=== PATIENT | female | born 1975 | race Caucasian/White ===

== ENCOUNTER → 2020-10-07 17:47 | Outpatient (CLI) | payer OTHER, SELFPAY ==
--- NOTE | ~2020-10-07 | MM_ITS ---
EXAMINATION: MM screening anahi BI w jg HISTORY: Screening TECHNIQUE: Craniocaudal and mediolateral oblique 3-D tomosynthesis images were obtained and synthetic 2-D images were generated. CAD analysis was submitted and interpreted. COMPARISON: Comparison to multiple prior studies sequentially, with oldest reviewed study dated 08/2017. BREAST PARENCHYMAL COMPOSITION: The breasts are heterogeneously dense, which may obscure small masses . FINDINGS: There is no evidence of suspicious mass, calcification, or architectural distortion to sugg est malignancy in either breast. There has been no suspicious interval change. IMPRESSION: 1. No mammographic evidence of malignancy. 2. Recommend routine screening mammography in one year. BI-RADS Category 1: Negative Reviewed, dictated and finalized at location A. 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
== END ==
PROVIDERS: Visit Provider Physician Assistant
DX: Z12.31 Encounter for screening mammogram for malignant neoplasm of breast (principal)
CPT/HCPCS: 77063; 77067

== ENCOUNTER → 2022-01-19 16:39 | Outpatient (CLI) | payer OTHER, SELFPAY ==
--- NOTE | ~2022-01-19 | MM_ITS ---
EXAMINATION: MM screening anahi BI w jg HISTORY: Screening mammogram TECHNIQUE: Craniocaudal and mediolateral oblique 3-D tomosynthesis images were obtained and synthetic 2-D images were generated. CAD analysis was submitted and interpreted. COMPARISON: No prior mammogram is available for comparison at this institution. BREAST PARENCHYMAL COMPOSITION: The breasts are heterogeneously dense, which may obscure small masses . FINDINGS: There is no evidence of suspicious mass, calcification, or architectural distortion to sugg est malignancy in either breast. There has been no suspicious interval change. IMPRESSION: 1. No mammographic evidence of malignancy. 2. Recommend routine screening mammography in one year. BI-RADS Category 1: Negative Reviewed, dictated and finalized at location A.
== END ==
PROVIDERS: PCP Family Medicine; Visit Provider Obstetrics & Gynecology Gynecology
DX: Z12.31 Encounter for screening mammogram for malignant neoplasm of breast (principal)
CPT/HCPCS: 77063; 77067

== ENCOUNTER 2023-03-13 09:08 | Emergency (ER) | payer OTHER, SELFPAY ==
--- NOTE | 2023-03-13 09:10 | ED.ANIMALBIT ---
HPI - Animal Bite General Chief Complaint: Animal Bite Stated Complaint: Animal Bite Rt Arm Time Seen by Provider: 03/13/23 09:09 Source: patient Mode of arrival: ambulatory Limitations: no limitations History of Present Illness HPI narrative: Yuridia is a 47-year-old female patient presenting to the clinic today with complaints of a cat bite to her right arm. She reports her cat bite her right forearm 2 nights ago. States the arm has become more swollen, painful, and she now has redness streaking up her arm with pain in her axilla. Reports chills/bodyaches but has not checked her temperature. Tetanus is not up to date. Related Data Home Medications Medication Instructions Recorded Confirmed estradiol 1 mg tablet 1 mg DIRECTED 03/13/23 03/13/23 Allergies Allergy/AdvReac Type Severity Reaction Status Date / Time No Known Allergies Allergy Verified 11/28/22 15:50 Review of Systems Review of Systems: Pertinent positives per HPI. Patient denies any headache, visual changes, dizziness, cough, runny nose, sore throat, shortness of breath, chest pain, palpitations, nausea, vomiting, diarrhea, constipation, abdominal pain, or any urinary issues. [facility] Past Medical History Medical History History of endometriosis HTN (hypertension) Major depressive disorder, recurrent, moderate Tobacco dependence due to cigarettes Surgical History Surgical History History of adenoidectomy History of hysterectomy Family History Family History Father Hypertension Acute myocardial infarction Sibling Hypertension Mother Patient's mother is in good health Hypertension Grandparent Alzheimer disease Social History Social History Social History: Single Smoking packs per day: 1 Smoking cigarettes per day: 20.0 Years smoked: 30 Smoking pack-years: 30.00 Smoking status: Current every day smoker Tobacco type: cigarettes Second hand tobacco smoke exposure: Yes Alcohol intake: current Drinks per week: 3 Substance use: never Substance use type: does not use Living arrangements: alone Occupation/Education: occupation Gender identity (if verbalized by the patient): Female Sexual Orientation (if Verbalized by the Patient): Straight or Heterosexual Comments At the time of my signature, I reviewed and agree with the nursing past medical, surgical, social, and family history. There is no relevant family history pertinent to the patient complaint. Exam Narrative: General: Well-developed, well nourished, in no apparent distress Head: Normocephalic, atraumatic. Cardio: Regular rate and rhythm, s1 and s2 normal, no murmur appreciated. Resp: Clear to auscultation bilaterally, no rhonchi, rales, wheezing or rubs. Integumentary: [place], warm, and dry, scabbed over puncture wound to the right dorsal forearm with swelling, erythema, and redness/streaking to the volar aspect of her arm going up into her right axilla. No palpable abscess. Course Course Emergency Course: Portions of this record may have been created with voice recognition software. Level of Care: Express Care Visit Vital Signs Vital signs: Vital signs reviewed Transfer Transfered to: [place] Transportation: Other (private car) Transfer rationale: Cat bite to right forearm, cellulitis, infected puncture wound Accepting physician: Dr. Valenzuela Transfer comments: transfer via private car MDM - Animal Bite MDM Narrative Medical decision making narrative: At the time of visit patient is resting comfortably on exam table. I suspect patient has an infected cat bite with cellulitis to the right forearm with streaking to the volar aspect of the arm going into the right armpit. Recomme
[2023-03-13 09:18] VITALS: BP 140/76; PULSE 86; RESP 18; TEMP 36.7; O2SAT 100
== END 2023-03-13 09:36 | disposition short-term general hospital (02) ==
PROVIDERS: Emergency Provider Nurse Practitioner Family; PCP Family Medicine
DX: S51.831A Puncture wound without foreign body of right forearm, initial encounter (principal); L03.113 Cellulitis of right upper limb; W55.01XA Bitten by cat, initial encounter; F17.210 Nicotine dependence, cigarettes, uncomplicated; N80.9 Endometriosis, unspecified; I10 Essential (primary) hypertension
CPT/HCPCS: 99212; G0463

== ENCOUNTER 2023-03-13 09:49 | Observation (INO) | payer OTHER, SELFPAY ==
[2023-03-13] VITALS (17 sets, daily range): BP systolic 139–172; BP diastolic 64–85; PULSE 68–80; RESP 16–18; TEMP 36.1–36.8; O2SAT 95–100; BMI 24.8; BMI 24.9
[2023-03-13 10:58] LABS: Basophils Absolute Auto 0.1 K/mm3 (0.0-0.1); Basophils Percent Auto 0.3 % (0.2-1.2); Eosinophils Percent Auto 0.1 % (0-4.4); Hematocrit 48.7 % (37.0-47.0); Hemoglobin 16.7 g/dL (12.0-15.0); Immature Granulocyte Percent A 0.5 % (0-0.5); Lymphocytes Absolute Auto 1.77 K/mm3 (0.9-3.2); Lymphocytes Percent Auto 9.3 % (18.3-44.2); Mean Corpuscular HGB Conc 34.3 g/dl (32-36); Mean Corpuscular Hemoglobin 31.9 pg (26-34); Mean Corpuscular Volume 92.9 fl (80-100); Mean Platelet Volume 10.7 fl (7.4-10.4); Monocytes Absolute Auto 1.2 K/mm3 (0.1-0.6); Monocytes Percent Auto 6.4 % (2.6-8.5); Neutrophils Absolute Auto 15.9 K/mm3 (1.3-6.7); Neutrophils Percent Auto 83.4 % (45.5-73.1); Platelet Count Result 211 k/mm3 (150-375); Red Blood Count 5.24 M/mm3 (4.2-5.4); Red Cell Distribution Width 13.5 % (11.5-14.5)
--- NOTE | 2023-03-13 11:05 | PC.NURSE ---
Report given to LALIT Leon
[2023-03-13 11:14] LABS: Alanine Aminotransferase 37 U/L (6-35); Albumin Level 4.8 g/dL (3.5-5.1); Alkaline Phosphatase 89 U/L (38-126); Anion Gap 10 mmol/L (8-16); Aspartate Amino Transferase 32 U/L (14-36); Blood Urea Nitrogen 9 mg/dL (7-17); Calcium 9.4 mg/dL (8.4-10.2); Carbon Dioxide 23 mmol/L (22-30); Chloride 102 mmol/L (98-107); Estimated CRCL calculation 87 ml/min; Estimated Glomerular Filt Rate > 60; Glucose 111 mg/dL (65-110); Potassium 3.7 mmol/L (3.4-5.0); Sodium 135 mmol/L (137-145)
[2023-03-13] MEDS: AMPICILLIN SULB 3 GM/NS 100 ML 3 GM/100 ML VIAL IVPB ×3 (11:23→23:15)
[2023-03-13 11:26] LABS: CRP 19.2 mg/dL (<1.0)
--- NOTE | 2023-03-13 11:48 | ED.WOUNDLAC ---
HPI - Wound/Laceration General Chief Complaint: Wound/Laceration Stated Complaint: redness, swelling right arm Time Seen by Provider: 03/13/23 10:51 Source: patient and RN notes reviewed Mode of arrival: ambulatory Limitations: no limitations History of Present Illness HPI narrative: THis is a 47 year old female who presents for evaluation of right arm redness, s/p cat bite. PAtient reports she was bitten by cat on her right forearm on Sunday. Yesterday she started feeling ill with bodyaches and fatigue. He noticed redness going up her right arm last night and today. She also reports right axilla pain. She has been taking ibuprofen for her pain . She unsure of fever. She was seen at [facility] this morning and she was referred to ER Related Data Home Medications Medication Instructions Recorded Confirmed estradiol 1 mg tablet 1 mg PO DIRECTED 03/13/23 03/13/23 sertraline 50 mg tablet 50 mg PO DAILY 03/13/23 03/13/23 Allergies Allergy/AdvReac Type Severity Reaction Status Date / Time No Known Allergies Allergy Verified 03/13/23 13:50 Review of Systems Constitutional: Constitutional: Reports fatigue and Denies weakness Cardiovascular: Cardiovascular: Denies syncope, Denies rapid heart rate, Denies irregular heart rhythm, Denies leg edema and Denies dyspnea Respiratory: Respiratory: Denies chest congestion, Denies hemoptysis, Denies excessive phlegm production and Denies dyspnea Gastrointestinal: Gastrointestinal: Denies abdominal pain, Denies hematochezia, Denies diarrhea and Denies vomiting Genitourinary: Genitourinary: Denies hematuria and Denies dysuria Musculoskeletal: Musculoskeletal: Reports myalgias, Denies joint swelling, Denies loss of height and Denies muscle weakness Integumentary/Breasts: Skin/Breast: Reports erythema Neurologic: Denies syncope, Denies focal weakness and Denies weakness PMFSH Past Medical History Medical History (Updated 03/13/23 @ 18:45 by Rosairo Valenzuela MD) History of endometriosis HTN (hypertension) Hyperlipidemia Major depressive disorder, recurrent, moderate Tobacco dependence due to cigarettes Surgical History Surgical History History of adenoidectomy History of hysterectomy Family History Family History Father Hypertension Acute myocardial infarction Sibling Hypertension Mother Patient's mother is in good health Hypertension Grandparent Alzheimer disease Social History Social History Social History: Single Smoking packs per day: 1.5 Smoking cigarettes per day: 30.0 Years smoked: 35 Smoking pack-years: 52.50 Smoking status: Current every day smoker Tobacco type: cigarettes Second hand tobacco smoke exposure: Yes Alcohol intake: current Drinks per week: 30 Substance use: never Substance use type: marijuana Other substance usage details: infrequent Last use: 03/06/23 Lack of Transportation: No Lack of Food: Never True Current Housing: I Have Housing Concerned About Future Housing: No Difficulty Paying Gas/Electric Bills: No Difficulty Paying for Meds: No Currently Unemployed: No Education: Decline to Answer Difficulty w/ Childcare or Family Care: No Living arrangements: alone Occupation/Education: occupation Gender identity (if verbalized by the patient): Female Sexual Orientation (if Verbalized by the Patient): Straight or Heterosexual Spiritual care concerns: No Exam Const: General: no acute distress and alert Nutritional Appearance: well nourished Orientation/consciousness: patient oriented x3 HENMT: Head: normal to inspection Mouth: Yes Normal oral and palatal mucosa present, Yes lip normal and Yes moist mucous membranes Throat: posterior oropharynx normal Eyes: EOM: EOMs intact bilaterally Neck: Neck
--- NOTE | 2023-03-13 11:54 | PC.NURSE ---
patient requesting pain medications. provider aware
[2023-03-13] MEDS: KETOROLAC 30 MG/ML VIAL (*BKC) IV PUSH ×2 (11:56→18:37)
--- NOTE | 2023-03-13 13:35 | ADMGEN ---
This patient, Yuridia Bess, was admitted to [facility] Surg Room 330-02. Patient/family oriented to hospital policies and general routines including ID bracelet, bed and alarms, visiting hours, pain management, procedures, bathroom and other care routines, personal items, smoking policy, room service/diet, and visiting hours. Information on how to activate the Rapid Response Team has been discussed. Patient/Family are encouraged to report perceived risks to care and to ask questions if they do not understand what they are told or what they should do.
--- NOTE | 2023-03-13 14:01 | PM.IMHP ---
H&P: HPI History of Present Illness Date/Time: 03/13/23 14:01 Chief Complaint: right upper extremity pain redness and swelling Narrative: A 47 year old female who presents for evaluation of right arm redness and pain, s/p cat bite. PAtient reports she was bitten by cat on her right forearm on Sunday. Yesterday she started feeling ill with bodyaches and fatigue and chills. He noticed redness going up her right arm last night and today. She also reports right axilla pain. She has been taking ibuprofen for her pain . She unsure of fever. She was seen at [facility] this morning and she was referred to ER. Denied involvement of any other part of her body. Review of Systems Constitutional: Comments: All system revieweed and found negative exept as documented on HPI above PMFSH Past Medical History Medical History (Updated 03/13/23 @ 14:30 by Darling Marie MD) History of endometriosis HTN (hypertension) Hyperlipidemia Major depressive disorder, recurrent, moderate Tobacco dependence due to cigarettes Surgical History Surgical History History of adenoidectomy History of hysterectomy Family History Family History Father Hypertension Acute myocardial infarction Sibling Hypertension Mother Patient's mother is in good health Hypertension Grandparent Alzheimer disease Social History Social History Social History: Single Smoking packs per day: 1.5 Smoking cigarettes per day: 30.0 Years smoked: 35 Smoking pack-years: 52.50 Smoking status: Current every day smoker Tobacco type: cigarettes Second hand tobacco smoke exposure: Yes Alcohol intake: current Drinks per week: 30 Substance use: never Substance use type: marijuana Other substance usage details: infrequent Last use: 03/06/23 Lack of Transportation: No Lack of Food: Never True Current Housing: I Have Housing Concerned About Future Housing: No Difficulty Paying Gas/Electric Bills: No Difficulty Paying for Meds: No Currently Unemployed: No Education: Decline to Answer Difficulty w/ Childcare or Family Care: No Living arrangements: alone Occupation/Education: occupation Gender identity (if verbalized by the patient): Female Sexual Orientation (if Verbalized by the Patient): Straight or Heterosexual Spiritual care concerns: No Meds Home Medications and Allergies Home Medications Medication Instructions Recorded Confirmed Type losartan 25 mg tablet 25 mg PO DAILY #30 tabs 12/01/22 03/13/23 Rx estradiol 1 mg tablet 1 mg PO DIRECTED 03/13/23 03/13/23 History sertraline 50 mg tablet 50 mg PO DAILY 03/13/23 03/13/23 History Allergies Allergy/AdvReac Type Severity Reaction Status Date / Time No Known Allergies Allergy Verified 03/13/23 13:50 Vital Signs Vital Signs - 24 hr 03/13/23 10:07 03/13/23 11:41 03/13/23 11:45 Temperature 97.7 F Pulse Rate 80 Respiratory Rate 18 Blood Pressure 159/67 H Pulse Oximetry 98 98 100 Oxygen Delivery Room Air 03/13/23 11:46 03/13/23 12:00 03/13/23 12:01 Temperature Pulse Rate Respiratory Rate Blood Pressure 172/84 H 169/85 H Pulse Oximetry 99 99 97 Oxygen Delivery 03/13/23 12:15 03/13/23 12:16 03/13/23 12:31 Temperature Pulse Rate Respiratory Rate Blood Pressure 151/81 H 153/79 H Pulse Oximetry 97 96 Oxygen Delivery 03/13/23 12:37 03/13/23 12:48 03/13/23 13:27 Temperature 98.2 F Pulse Rate 72 Respiratory Rate 18 Blood Pressure 139/68 Pulse Oximetry 97 95 97 Oxygen Delivery Exam Const: General: no acute distress HENMT: Face/Nose/Sinus: Normal nares present Mouth: Yes moist mucous membranes Eyes: General: appearance normal, both eyes and all related structures EOM: EOMs intact b
[2023-03-13] MEDS: THIAMINE HCL 100 MG TABLET PO (16:07)
[2023-03-13] MEDS: SERTRALINE HCL 50 MG TABLET PO (16:07)
[2023-03-13] MEDS: LOSARTAN POTASSIUM 25 MG TABLET PO (16:07)
[2023-03-13] MEDS: SODIUM CHLORIDE 0.9% IV 1,000 ML 125 ML IV CONT ×2 (16:09→23:15)
[2023-03-13 18:23] LABS: Glucose Point of Care 165 mg/dl (65-105)
[2023-03-13 23:39] LABS: Glucose Point of Care 102 mg/dl (65-105)
[2023-03-14] VITALS (9 sets, daily range): BP systolic 137–184; BP diastolic 73–87; PULSE 61–69; RESP 16–20; TEMP 36–36.5; O2SAT 100
[2023-03-14] MEDS: AMPICILLIN SULB 3 GM/NS 100 ML 3 GM/100 ML VIAL IVPB ×4 (05:12→23:16)
[2023-03-14 06:07] LABS: Basophils Percent Auto 0.3 % (0.2-1.2); Eosinophils Absolute Auto 0.1 K/mm3 (0-0.3); Eosinophils Percent Auto 0.6 % (0-4.4); Hematocrit 42.6 % (37.0-47.0); Hemoglobin 14.3 g/dL (12.0-15.0); Immature Granulocyte Absolute 0.06 K/mm3 (0.00-0.031); Immature Granulocyte Percent A 0.4 % (0-0.5); Lymphocytes Absolute Auto 1.65 K/mm3 (0.9-3.2); Lymphocytes Percent Auto 11.8 % (18.3-44.2); Mean Corpuscular HGB Conc 33.6 g/dl (32-36); Mean Corpuscular Hemoglobin 31.8 pg (26-34); Mean Corpuscular Volume 94.9 fl (80-100); Mean Platelet Volume 10.8 fl (7.4-10.4); Monocytes Absolute Auto 1.2 K/mm3 (0.1-0.6); Monocytes Percent Auto 8.7 % (2.6-8.5); Neutrophils Absolute Auto 10.9 K/mm3 (1.3-6.7); Neutrophils Percent Auto 78.2 % (45.5-73.1); Platelet Count Result 155 k/mm3 (150-375); Red Blood Count 4.49 M/mm3 (4.2-5.4); Red Cell Distribution Width 13.5 % (11.5-14.5)
[2023-03-14 06:20] LABS: Alanine Aminotransferase 36 U/L (6-35); Albumin Level 3.5 g/dL (3.5-5.1); Alkaline Phosphatase 76 U/L (38-126); Anion Gap 6 mmol/L (8-16); Aspartate Amino Transferase 39 U/L (14-36); Bilirubin,Total 0.7 mg/dL (0.2-1.3); Blood Urea Nitrogen 10 mg/dL (7-17); Calcium 7.7 mg/dL (8.4-10.2); Carbon Dioxide 20 mmol/L (22-30); Chloride 108 mmol/L (98-107); Estimated CRCL calculation 102 ml/min; Estimated Glomerular Filt Rate > 60; Glucose 109 mg/dL (65-110); Potassium 3.6 mmol/L (3.4-5.0); Sodium 134 mmol/L (137-145)
[2023-03-14] MEDS: SODIUM CHLORIDE 0.9% IV 1,000 ML 125 ML IV CONT ×3 (09:08→20:24)
[2023-03-14] MEDS: THIAMINE HCL 100 MG TABLET PO (09:13)
[2023-03-14] MEDS: LOSARTAN POTASSIUM 25 MG TABLET PO (09:13)
[2023-03-14] MEDS: SERTRALINE HCL 50 MG TABLET PO (09:13)
[2023-03-14] MEDS: estradioL 1 MG TABLET PO (09:13)
[2023-03-14 11:47] LABS: Glucose Point of Care 98 mg/dl (65-105)
--- NOTE | 2023-03-14 12:44 | PCCCNOTE ---
On 03/14/23, the student, [Aimee Gonzalez], provided care and completed [facility] documentation on this patient. I have reviewed the student's documentation and agree with the findings.
[2023-03-14] MEDS: chlordiazePOXIDE (*CRX) 25 MG CAPSULE PO ×2 (16:21→20:24)
--- NOTE | 2023-03-14 16:26 | WPDPN ---
Progress Note: A&P Assessment and Plan (1) Cellulitis of arm, right: Code(s): L03.113 - Cellulitis of right upper limb Status: Inactive Assessment and Plan: Based findings of erythema, warm, tenderness and swelling with focus of puncture injury on the right dorsal distal forearm, elevated white count of 19K. Admit for IV antibiotics as infection is spreading rapidly proximally, start ampicillin/sulbactam 3g q6h, continue IVF at maintenance rate of 125ml/hr, Pain control as needed with toradol ( patient does not want narcotics), follow up on morning labs (2) Cat bite involving extremity: Status: Acute Assessment and Plan: Wound not draining, close observation, continue antibiotic, and take culture samples if wound drains. HPI-Narrative: A 47 year old female who presents for evaluation of right arm redness and pain, s/p cat bite. PAtient reports she was bitten by cat on her right forearm on Sunday.? Yesterday she started feeling ill with bodyaches and fatigue and chills. He noticed redness going up her right arm last night and today.? She also reports right axilla pain. She has been taking ibuprofen for her pain . She unsure of fever.? She was [facility] this morning and she was referred to ER. Denied involvement of any other part of her body. 03/14/2023 interval history: 47-year-old female presented with cellulitis right forearm patient states see was beaten by the a cat 3 days ago and developed worsening redness and swelling, is being treated Unasyn, patient states symptoms are improving and denies any fever or chills, patient also has history alcohol abuse and patient appears more anxious and her blood pressure is elevated risk for DT will give the patient Librium 25 mg q.6 schedule for 1 day and continue with [facility] protocol reassess. (3) Hypertension, essential: Code(s): I10 - Essential (primary) hypertension Status: Acute Assessment and Plan: Controlled, continue losartan 50 mg Po daily (4) ETOH abuse: Code(s): F10.10 - Alcohol abuse, uncomplicated Status: Acute Assessment and Plan: patient is a heavy drinker and she takes up to 7 beers daily for about 6 days a week, Will observe and also ativan 2 mg IV PRN for tremors and shaking Plan Continue sertraline and other home reconciled medications Subjective Date/time seen: 03/14/23 16:26 Interval history: right upper extremity pain redness and swelling HPI-Narrative: A 47 year old female who presents for evaluation of right arm redness and pain, s/p cat bite. PAtient reports she was bitten by cat on her right forearm on Sunday.? Yesterday she started feeling ill with bodyaches and fatigue and chills. He noticed redness going up her right arm last night and today.? She also reports right axilla pain. She has been taking ibuprofen for her pain . She unsure of fever.? She was seen at [facility] this morning and she was referred to ER. Denied involvement of any other part of her body. 03/14/2023 interval history: 47-year-old female presented with cellulitis right forearm patient states see was beaten by the a cat 3 days ago and developed worsening redness and swelling, is being treated Unasyn, patient states symptoms are improving and denies any fever or chills, patient also has history alcohol abuse and patient appears more anxious and her blood pressure is elevated risk for DT will give the patient Librium 25 mg q.6 schedule for 1 day and continue with [facility] protocol reassess. Review of Systems Constitutional: Comments: All system revieweed and found negative exept as documented on HPI above Exam Narrative: Patient is comfortable, NAD HEENT: eyes are clear and none icteric LUNGS: normal respiratory effort ABD: distended Lower extremities: no edema SKIN: nonjaundicedL right forearm dorsal aspect erythema, swelling and bite billy, there is no red streak. Neuro: grossly intact.
[2023-03-14 17:52] LABS: Glucose Point of Care 187 mg/dl (65-105)
[2023-03-14 23:34] LABS: Glucose Point of Care 96 mg/dl (65-105)
[2023-03-15 00:08] VITALS: BP 162/83; PULSE 56; RESP 16; TEMP 36.1; O2SAT 97
--- NOTE | 2023-03-15 00:17 | PC.NURSE ---
Spoke with Dr. Duong at this time r/t elevated BP. New orders received for hydralazine 10 mg IVP Q6H prn for systolic greater than 150 and diastolic greater than 90.
[2023-03-15] MEDS: hydrALAZINE HCL 20 MG/ML VIAL 10 MG IV PUSH (00:55)
[2023-03-15] MEDS: chlordiazePOXIDE (*CRX) 25 MG CAPSULE PO ×2 (02:36→08:56)
[2023-03-15 04:00] VITALS: BP 146/93; PULSE 67; RESP 16; TEMP 36.1; O2SAT 98
[2023-03-15] MEDS: SODIUM CHLORIDE 0.9% IV 1,000 ML 125 ML IV CONT (04:30)
[2023-03-15] MEDS: AMPICILLIN SULB 3 GM/NS 100 ML 3 GM/100 ML VIAL IVPB ×2 (05:37→11:24)
[2023-03-15 05:48] LABS: Glucose Point of Care 103 mg/dl (65-105)
[2023-03-15 07:22] LABS: Hematocrit 43.2 % (37.0-47.0); Hemoglobin 14.6 g/dL (12.0-15.0); Mean Corpuscular HGB Conc 33.8 g/dl (32-36); Mean Corpuscular Hemoglobin 31.6 pg (26-34); Mean Corpuscular Volume 93.5 fl (80-100); Mean Platelet Volume 11.1 fl (7.4-10.4); Platelet Count Result 164 k/mm3 (150-375); Red Blood Count 4.62 M/mm3 (4.2-5.4); Red Cell Distribution Width 13.3 % (11.5-14.5); White Blood Count 10.7 K/mm3 (4.5-10.0)
[2023-03-15 07:33] LABS: Anion Gap 6 mmol/L (8-16); Blood Urea Nitrogen 6 mg/dL (7-17); Carbon Dioxide 21 mmol/L (22-30); Chloride 113 mmol/L (98-107); Estimated CRCL calculation 102 ml/min; Estimated Glomerular Filt Rate > 60; Glucose 106 mg/dL (65-110); Magnesium 1.9 mg/dL (1.6-2.3); Potassium 3.7 mmol/L (3.4-5.0); Sodium 140 mmol/L (137-145)
[2023-03-15 08:00] VITALS: BP 147/80; PULSE 59; RESP 20; TEMP 36.7; O2SAT 100
[2023-03-15] MEDS: LOSARTAN POTASSIUM 25 MG TABLET PO (08:56)
[2023-03-15] MEDS: estradioL 1 MG TABLET PO (08:56)
[2023-03-15] MEDS: THIAMINE HCL 100 MG TABLET PO (08:56)
[2023-03-15] MEDS: SERTRALINE HCL 50 MG TABLET PO (08:56)
[2023-03-15 11:53] LABS: Glucose Point of Care 100 mg/dl (65-105)
[2023-03-15 12:00] VITALS: BP 152/69; PULSE 50; RESP 20; TEMP 36.8; O2SAT 99
--- NOTE | 2023-03-15 13:05 | PC.NURSE ---
Addendum entered by Miroslava Kellogg RN 03/15/23 14:20: Pt IV removed tip intact. Pt tolerated well. Pt educated on discharge instructions, importance of taking antibiotics, and signs and symptoms to watch and return for. Pt escorted to ED upon discharge to get to personal vehicle. Pt was monitored for any changes in status while here. Original Note: Pt is A&O4 female. Pt is eager to discharge. Pt was educated that we are waiting to hear from infectious disease pharmacy to be sure to get her correct antibiotics. Pt verbalizes understanding of education. Pt ambulating in halls waiting for discharge. Will continue to monitor pt until discharge.
--- NOTE | 2023-03-15 13:22 | PM.DS ---
DS: Admitting Diagnosis Discharge Date 03/15/2023 Admitting Diagnosis right upper extremity pain redness and swelling DS: Discharge Diagnosis Discharge Diagnosis (1) Cellulitis of arm, right: Code(s): L03.113 - Cellulitis of right upper limb Status: Inactive Assessment and Plan: Based findings of erythema, warm, tenderness and swelling with focus of puncture injury on the right dorsal distal forearm, elevated white count of 19K. Admit for IV antibiotics as infection is spreading rapidly proximally, start ampicillin/sulbactam 3g q6h, continue IVF at maintenance rate of 125ml/hr, Pain control as needed with toradol ( patient does not want narcotics), follow up on morning labs (2) Cat bite involving extremity: Status: Acute Assessment and Plan: Wound not draining, close observation, continue antibiotic, and take culture samples if wound drains. HPI-Narrative: A 47 year old female who presents for evaluation of right arm redness and pain, s/p cat bite. PAtient reports she was bitten by cat on her right forearm on Sunday.? Yesterday she started feeling ill with bodyaches and fatigue and chills. He noticed redness going up her right arm last night and today.? She also reports right axilla pain. She has been taking ibuprofen for her pain . She unsure of fever.? She was seen at [facility] this morning and she was referred to ER. Denied involvement of any other part of her body. 03/14/2023 interval history: 47-year-old female presented with cellulitis right forearm patient states see was beaten by the a cat 3 days ago and developed worsening redness and swelling, is being treated Unasyn, patient states symptoms are improving and denies any fever or chills, patient also has history alcohol abuse and patient appears more anxious and her blood pressure is elevated risk for DT will give the patient Librium 25 mg q.6 schedule for 1 day and continue with [facility] protocol reassess. (3) Hypertension, essential: Code(s): I10 - Essential (primary) hypertension Status: Acute Assessment and Plan: Controlled, continue losartan 50 mg Po daily (4) ETOH abuse: Code(s): F10.10 - Alcohol abuse, uncomplicated Status: Acute Assessment and Plan: patient is a heavy drinker and she takes up to 7 beers daily for about 6 days a week, Will observe and also ativan 2 mg IV PRN for tremors and shaking Plan Continue sertraline and other home reconciled medications DS: Summary Hospital Course Reason for hospitalization: Chief Complaint: right upper extremity pain redness and swelling Narrative: A 47 year old female who presents for evaluation of right arm redness and pain, s/p cat bite. PAtient reports she was bitten by cat on her right forearm on Sunday.? Yesterday she started feeling ill with bodyaches and fatigue and chills. He noticed redness going up her right arm last night and today.? She also reports right axilla pain. She has been taking ibuprofen for her pain . She unsure of fever.? She was seen at [facility] this morning and she was referred to ER. Denied involvement of any other part of her body. Hospital Course: 47-year-old female presented with cellulitis right forearm? patient states see was beaten by the a cat? 3 days ago and developed worsening redness and swelling, is being treated Unasyn, patient states symptoms are improving and denies any fever or chills,? patient also has history alcohol abuse and patient appears more anxious and her blood pressure is elevated risk for DT will give the patient Librium 25 mg q.6 schedule for 1 day and? continue with [facility] protocol reassess. Patient clinicall symptoms have improved and does not show any sign or symptoms of DT, her cellulitis is improving, will discharge patient today. Time Spent with Patient Time attestation: Total time spent providing and/or coordinating discharge services: Exam Narrative: Patient is comfortable, NAD H
--- NOTE | 2023-03-15 13:43 | PCCCNOTE ---
On 03/15/23, the student, [Kaycee Gonzalez], provided care and completed [facility] documentation on this patient. I have reviewed the student's documentation and agree with the findings.
== END 2023-03-15 14:00 | disposition home or self-care (01) ==
LOC: ANHED 11:22 → ANH3MEDSUR 03-14 14:18
PROVIDERS: Internal Medicine; Admitting Provider Student in an Organized Health Care Education/Training Program; Emergency Provider General Practice; PCP Family Medicine; Visit Provider Family Medicine
DX: L03.113 Cellulitis of right upper limb (principal); S41.151A Open bite of right upper arm, initial encounter; W55.01XA Bitten by cat, initial encounter; L03.91 Acute lymphangitis, unspecified; N80.9 Endometriosis, unspecified; I10 Essential (primary) hypertension; E78.5 Hyperlipidemia, unspecified; F32.9 Major depressive disorder, single episode, unspecified; D72.829 Elevated white blood cell count, unspecified; F17.210 Nicotine dependence, cigarettes, uncomplicated; F10.10 Alcohol abuse, uncomplicated; F12.90 Cannabis use, unspecified, uncomplicated; Z79.3 Long term (current) use of hormonal contraceptives; Z79.899 Other long term (current) drug therapy; Z82.49 Family history of ischemic heart disease and other diseases of the circulatory system
CPT/HCPCS: 36415; 80048; 80053; 82948; 83735; 85025; 85027; 86140; 87040; 87070; 87205; 96361; 96365; 96375; 96376; 99285; A9270; G0378; J0295; J0360; J1885; J7030

== ENCOUNTER 2025-04-07 11:13 | Emergency (ER) | payer OTHER, SELFPAY ==
[2025-04-07 11:20] VITALS: BP 117/95; PULSE 85; RESP 16; TEMP 36.2; O2SAT 96
--- NOTE | 2025-04-07 11:34 | ED_ITS ---
HPI - Eye Problem General Chief complaint: Eye Problems Stated complaint: LT Eye Problems Time Seen by Provider: 04/07/25 11:15 Source: patient and RN notes reviewed Mode of arrival: ambulatory Limitations: no limitations History of Present Illness HPI Narrative: 49-year-old female presents [facility] complaining left left eye problem for approximately 4 days. Patient is upon to her left lower eyelid since then she has had increased redness and swelling to her eyelid and redness to her left eye. Patient also reports thick per unit drainage coming out of her eye. Patient denies any vision problems or eye pain. Patient denies any fevers, body aches, chills. Patient has tried warm compress and [id number] eyedrops without relief. Related Data Home Medications ?Medication ?Instructions ?Recorded ?Confirmed ?Last Taken ?Type estradiol 1 mg tablet 1 mg PO DIRECTED 03/13/23 05/12/24 03/12/23 History Allergies Allergy/AdvReac Type Severity Reaction Status Date / Time No Known Allergies Allergy Verified 04/07/25 11:24 Review of Systems Review of Systems: CONSTITUTIONAL: Denies fever, chills, or sweats. EYES: Denies visual changes, pain, or blurry vision. Positive for drainage, redness, eyelid swelling. ENT: Denies rhinorrhea, congestion, sore throat, or otalgia. CARDIOVASCULAR: Denies chest pain, palpitations, or edema. RESPIRATORY: Denies cough or dyspnea. GASTROINTESTINAL: Denies abdominal pain, nausea, vomiting, or diarrhea. GENITOURINARY: Denies dysuria or hematuria. SKIN: Denies rash or itching. MUSCULOSKELETAL: Denies back pain, joint pain, or myalgia. NEUROLOGIC: Denies headache, numbness, or weakness. PSYCHIATRIC: Denies anxiety or depression. All other systems reviewed are negative, except as documented in HPI. [facility] Past Medical History Medical History Acute lymphangitis Hyperlipidemia Hypertension, essential Cat bite involving extremity Major depressive disorder, recurrent, moderate Tobacco dependence due to cigarettes History of endometriosis HTN (hypertension) Surgical History Surgical History History of adenoidectomy History of hysterectomy Family History Family History Father Hypertension Acute myocardial infarction Sibling Hypertension Mother Patient's mother is in good health Hypertension Grandparent Alzheimer disease Social History Social History Social History: Single Smoking packs per day: 1.5 Smoking cigarettes per day: 30.0 Years smoked: 35 Smoking pack-years: 52.50 Smoking status: Current every day smoker Tobacco type: cigarettes Second hand tobacco smoke exposure: Yes Alcohol intake: current Drinks per week: 30 Substance use: never Substance use type: marijuana Other substance usage details: infrequent Last use: 03/06/23 Lack of Transportation: No Lack of Food: Never True Current Housing: I Have Housing Concerned About Future Housing: No Difficulty Paying Gas/Electric Bills: No Difficulty Paying for Meds: No Currently Unemployed: No Education: Decline to Answer Difficulty w/ Childcare or Family Care: No Living arrangements: alone Occupation/Education: occupation Gender identity (if verbalized by the patient): Female Sexual Orientation (if Verbalized by the Patient): Straight or Heterosexual Spiritual care concerns: No Comments At the time of my signature, I reviewed and agree with the nursing past medical, surgical, social, and family history. There is no relevant family history pertinent to the patient complaint. Exam Narrative: GENERAL: This is a well-nourished, well-developed adult, in no apparent distress. They are non ill-appearing, nontoxic appearing. HEAD: normocephalic, atraumatic. EYES: Sclera clear/white. Right Conjunctiva normal. Left conjunctiva injected. Vision is grossly intact. Extraocular movements intact. Pupils PERRLA. Left lower eyelid with internal hodeolum present to the lateral side. It is erythematous with a purulence nodule present. It is tender to palpate. Left upper and lower eyelid edematous and erythemic. Is nontender. Is not hot to touch. Right upper and lower eyelids are normal. EARS: External ears normal, NOSE: External nose normal THROAT: Mucous membranes moist, NECK: Neck supple, CARDIOVASCULAR: Regular rate and rhythm RESPIRATORY: Respiratory rate normal, respiratory effort nonlabored, no respiratory distress SKIN: warm, Dry, intact with no suspicious lesions or rash, good texture and turgor. NEURO: awake, alert, and oriented to person, place and time. There were no obvious focal neurologic abnormalities. EXTREMITIES: No joint tenderness, effusion, or edema noted. Course Course Emergency Course: Portions of this record may have been created with voice recognition software Level of Care: Express Care Visit Vital Signs Vital signs: Vital Signs Temperature 97.1 F L 04/07/25 11:20 Pulse Rate 85 04/07/25 11:20 Respiratory Rate 16 04/07/25 11:20 Blood Pressure 117/95 H 04/07/25 11:20 Pulse Oximetry 96 04/07/25 11:20 Oxygen Delivery Room Air 04/07/25 11:20 Temperature 97.1 F L 04/07/25 11:20 Pulse Rate 85 04/07/25 11:20 Respiratory Rate 16 04/07/25 11:20 Blood Pressure 117/95 H 04/07/25 11:20 Pulse Oximetry 96 04/07/25 11:20 Oxygen Delivery Room Air 04/07/25 11:20 Reviewed MDM - Eye Problem MDM Narrative Medical decision making narrative: Patient has internal hodeloum to left lower eyelid along with likely bacterial conjunctivitis. Will prescribe polymyxin eye drops and recommend warm compresses. Vision grossly intact. No visual acuity. No eye pain, redness and swelling is nontender not touch. Advised patient to follow-up with quality review trainer does not improve in the next few days. Discussed physical exam findings. Advised supportive measures and signs/symptoms to go to the ER. Pt is appropriate for outpt treatment and f/u. Differential Diagnosis Differential diagnosis: Likely corneal abrasion, conjunctivitis, periorbital cellulitis and other (Hordeolum, chalazion) Critical Care Time Critical Care Time Critical Care Time: No Discharge Plan Discharge Clinical Impression: Bacterial conjunctivitis Hordeolum Qualifiers: Hordeolum type: unspecified type Laterality: left Eyelid: lower Qualified Code(s): H00.015 - Hordeolum externum left lower eyelid Patient Disposition: Home Condition: Stable Instructions: Antibiotic Form, Stye (ED), Conjunctivitis (ED) Additional Instructions: Use the eye drops as instructed. Do not rub the eye or put anything else in the eye, this can cause abrasions (scratches) on the eye or lead to vision loss. Also it is important not to touch the tube or tip of drops to the eye, as this can cause further infection. Wash your hands very well before instilling the medication. Handwashing can help prevent the spread of disease. Apply warm, moist compresses on the affected area frequently (for 5 to 10 minutes three to five times per day) in order to help with drainage. Massage and gentle wiping of the affected eyelid after the warm compress can also help with drainage. You can use baby shampoo to wash the eye area Avoid wearing eye makeup or contact lenses If the lesion does not improve within one to two weeks, please follow up with an quality review trainer for further management. Contact [facility] if you need an Fretted Instrument Repairer If you developed worsening redness, swelling, pain, fevers, vision problems, or any serious concerns please go to the ER immediately. Patient Language: Greek Prescriptions: New polymyxin B sulf-trimethoprim 10,000 unit- 1 mg/mL drops 1 drp LEFT EYE Q3H 7 Days Qty: 10 0RF Rx Instructions: while awake; do not exceed 6 doses in 24 hours No Action estradiol 1 mg tablet 1 mg PO DIRECTED doxycycline hyclate 100 mg tablet See Rx Instructions .ROUTE .COMPLEX Qty: 30 2RF Dose Instruction: TAKE 1 TABLET BY MOUTH DAILY Rx Instructions: TAKE 1 TABLET BY MOUTH DAILY losartan 25 mg tablet 25 mg PO DAILY Qty: 90 1RF sertraline 50 mg tablet See Rx Instructions .ROUTE .COMPLEX Qty: 90 1RF Dose Instruction: TAKE 1 TABLET BY MOUTH DAILY Rx Instructions: TAKE 1 TABLET BY MOUTH DAILY omeprazole 40 mg capsule,delayed release(DR/EC) 40 mg PO DAILY Qty: 30 2RF Multiple Vitamin-Minerals Tablet 1 tablet PO DAILY Qty: 90 0RF folic acid 1 mg tablet 1 mg PO DAILY Qty: 90 0RF thiamine HCl (vitamin B1) 100 mg tablet 100 mg PO DAILY Qty: 90 0RF Follow-up/Referrals: Kwesi Kelly MD [Primary Care Provider, [facility]] Time of Disposition: 11:33
== END 2025-04-07 11:38 | disposition home or self-care (01) ==
PROVIDERS: PCP Family Medicine
DX: H10.9 Unspecified conjunctivitis (principal); H00.015 Hordeolum externum left lower eyelid; F17.210 Nicotine dependence, cigarettes, uncomplicated; I10 Essential (primary) hypertension; E78.5 Hyperlipidemia, unspecified; N80.9 Endometriosis, unspecified; F33.9 Major depressive disorder, recurrent, unspecified
CPT/HCPCS: 99213; G0463